=== PATIENT | female | born 1965 | race African-American/Black ===

== ENCOUNTER 2025-07-09 04:24 | Emergency (ER) | payer MEDICAID ==
[~2025-07-09] VITALS: Ht 180.3 cm; Wt 116.0 kg
[2025-07-09 04:39] VITALS: O2SAT 98
[2025-07-09] MEDS ORDERED: NAPR-1176 MT (04:49)
[2025-07-09] MEDS ORDERED: P50 MT (04:49)
[2025-07-09] MEDS: KETOROLAC 15MG/ML VIAL IM ONE (05:05)
[2025-07-09 05:14] VITALS: BP 150/97; PULSE 61; RESP 14; TEMP 36.9; O2SAT 98
== END 2025-07-09 05:15 | disposition home or self-care (01) ==
LOC: ER 04:24
DX: L40.9 Psoriasis, unspecified (principal); E11.9 Type 2 diabetes mellitus without complications; I10 Essential (primary) hypertension; Z79.1 Long term (current) use of non-steroidal anti-inflammatories (NSAID)
CPT/HCPCS: 99283; 96372; J1885